=== PATIENT | male | born 1945 | race Caucasian/White ===

== ENCOUNTER 2021-06-25 16:46 | Inpatient (IN) | payer MEDICARE ==
[~2021-06-25] VITALS: Ht 175.3 cm; Wt 82.6 kg
[2021-06-25 17:41] LABS: BASOPHIL 0.7 % (0-2); EOSINOPHIL 4.9 % (0-7); HCT 42.9 % (42.0-52.0); HGB 14.5 g/dl (13.2-18.0); LYMPHOCYTE 18.2 % (15-48); MCHC 33.8 g/dL (32.0-36.0); MCV 91.7 fL (78.0-100.0); MONOCYTE 6.6 % (0-12); MPV 9.7 fL (6.0-9.5); NEUTROPHIL 69.2 % (41-80); NRBC 0; PLT 203 K/uL (150-400); RBC 4.68 M/uL (4.70-6.00); RDW 12.9 % (11.5-14.0); WBC 7.1 K/uL (4.0-10.5)
[2021-06-25 17:47] LABS: INR 0.99 (0.9-1.2); PROTHROMBIN TIME 12.5 SECONDS (11.8-13.4); PTT 24.7 SECONDS (24.4-34.7)
[2021-06-25 18:12] LABS: ALBUMIN 3.9 g/dL (3.4-5.0); BILIRUBIN - TOTAL 0.4 mg/dL (0.2-1.0); BUN/CREAT RATIO (CALC) 18.2 RATIO; CREATININE 1.43 mg/dL (0.67-1.17); GLOBULIN (CALCULATION) 3.3 g/dL; POTASSIUM 4.1 mmol/L (3.5-5.1); TOTAL PROTEIN 7.2 g/dL (6.4-8.2)
[2021-06-25 19:02] LABS: CORONAVIRUS 2019 SARS-COV-2 NEGATIVE (NEGATIVE); INFLUENZA A NAA NEGATIVE (NEGATIVE)
[2021-06-25] MEDS ORDERED: VICODIN 10/3251 EACH PO (22:57)
[2021-06-25] MEDS ORDERED: NORVASC5 MG PO (23:00)
[2021-06-25] MEDS ORDERED: CRESTOR5 M1 PO (23:01)
[2021-06-25] MEDS ORDERED: CYCLOBENZAPRINE10 MG PO (23:03)
[2021-06-25] MEDS ORDERED: FISH OIL 1,2001 EACH PO (23:04)
[2021-06-25] MEDS ORDERED: ADULT ASPIRIN R81 MG PO (23:04)
[2021-06-25] MEDS ORDERED: ASCORBIC ACID500 MG PO (23:05)
[2021-06-25] MEDS ORDERED: COQ-10100 MG PO (23:05)
[2021-06-25] MEDS ORDERED: NIACIN50 MG PO (23:06)
[2021-06-25] MEDS ORDERED: VITAMIN B-650 MG PO (23:07)
[2021-06-25] MEDS ORDERED: VITAMIN B-121000 MC1 PO (23:07)
[2021-06-25] MEDS ORDERED: POTASSIUM99 M1 PO (23:09)
[2021-06-25] MEDS ORDERED: D3 DOTS50 MCG PO (23:10)
[2021-06-26 05:56] LABS: BASOPHIL 0.6 % (0-2); HCT 37.4 % (42.0-52.0); HGB 12.3 g/dl (13.2-18.0); LYMPHOCYTE 22.4 % (15-48); MCH 30.5 pg (25.0-31.0); MCHC 32.9 g/dL (32.0-36.0); MCV 92.8 fL (78.0-100.0); MONOCYTE 7.5 % (0-12); MPV 9.6 fL (6.0-9.5); NEUTROPHIL 60.3 % (41-80); NRBC 0; PLT 166 K/uL (150-400); RBC 4.03 M/uL (4.70-6.00); WBC 4.9 K/uL (4.0-10.5)
[2021-06-26 06:26] LABS: ALBUMIN 3.1 g/dL (3.4-5.0); BILIRUBIN - TOTAL 0.4 mg/dL (0.2-1.0); GLOBULIN (CALCULATION) 2.7 g/dL; PHOSPHORUS 4.2 mg/dL (2.6-4.7); POTASSIUM 4.1 mmol/L (3.5-5.1); TOTAL PROTEIN 5.8 g/dL (6.4-8.2)
[2021-06-26 06:37] LABS: CKMB 1.2 ng/mL (0.0-3.6)
[2021-06-27 06:08] LABS: BASOPHIL 0.4 % (0-2); EOSINOPHIL 7.5 % (0-7); HCT 41.1 % (42.0-52.0); HGB 13.6 g/dl (13.2-18.0); LYMPHOCYTE 25.4 % (15-48); MCH 30.8 pg (25.0-31.0); MCHC 33.1 g/dL (32.0-36.0); MCV 93.2 fL (78.0-100.0); MONOCYTE 6.4 % (0-12); MPV 9.5 fL (6.0-9.5); NEUTROPHIL 60.1 % (41-80); NRBC 0; PLT 175 K/uL (150-400); RBC 4.41 M/uL (4.70-6.00); RDW 13.1 % (11.5-14.0); WBC 4.8 K/uL (4.0-10.5)
[2021-06-27 06:27] LABS: BUN/CREAT RATIO (CALC) 13.7 RATIO; CREATININE 1.02 mg/dL (0.67-1.17); MAGNESIUM 2.3 mg/dL (1.8-2.4); POTASSIUM 4.9 mmol/L (3.5-5.1)
[2021-06-28] MEDS ORDERED: ELIQUIS5 MG PO (11:04)
[2021-06-28] MEDS ORDERED: CARDIZEM30 MG PO (11:04)
== END 2021-06-28 11:44 | disposition home or self-care (01) | DRG 310 ==
LOC: FER 16:46 → FTCU 20:49
PROVIDERS: Internal Medicine; Nurse Practitioner; Nurse Practitioner Family; ADMIT Internal Medicine
DX: I48.91 Unspecified atrial fibrillation (principal); Z20.822 Contact with and (suspected) exposure to COVID-19; I10 Essential (primary) hypertension; I25.10 Atherosclerotic heart disease of native coronary artery without angina pectoris; E78.5 Hyperlipidemia, unspecified; J45.909 Unspecified asthma, uncomplicated; E78.00 Pure hypercholesterolemia, unspecified; D53.9 Nutritional anemia, unspecified; E55.9 Vitamin D deficiency, unspecified; Z96.653 Presence of artificial knee joint, bilateral; Z95.5 Presence of coronary angioplasty implant and graft; Z79.82 Long term (current) use of aspirin; Z79.899 Other long term (current) drug therapy; Z85.820 Personal history of malignant melanoma of skin; Z87.891 Personal history of nicotine dependence
CPT/HCPCS: 36415; 71045; 80048; 80053; 80061; 82553; 83036; 83690; 83735; 83880; 84100; 84145; 84439; 84443; 84484; 85025; 85379; 85610; 85730; 93005; 94010; 94762; C9113; J1160; J1650; J7030; U0002

== ENCOUNTER 2021-10-09 01:14 | Day surgery (SDCO) | payer MEDICARE ==
[~2021-10-09] VITALS: Ht 175.3 cm; Wt 84.4 kg
[~2021-10-09 01:14] MED LIST: ADULT ASPIRIN R81 MG PO; ASCORBIC ACID500 MG PO; CARDIZEM30 MG PO; COQ-10100 MG PO; CRESTOR5 M1 PO; CYCLOBENZAPRINE10 MG PO; D3 DOTS50 MCG PO; ELIQUIS5 MG PO; FISH OIL 1,2001 EACH PO; NIACIN50 MG PO; NORVASC5 MG PO; POTASSIUM99 M1 PO; VICODIN 10/3251 EACH PO; VITAMIN B-121000 MC1 PO; VITAMIN B-650 MG PO
[2021-10-09 01:51] LABS: BASOPHIL 0.8 % (0-2); EOSINOPHIL 8.4 % (0-7); HCT 38.1 % (42.0-52.0); HGB 12.9 g/dl (13.2-18.0); MCH 31.2 pg (25.0-31.0); MCHC 33.9 g/dL (32.0-36.0); MONOCYTE 9.1 % (0-12); MPV 10.1 fL (6.0-9.5); NEUTROPHIL 60.2 % (41-80); NRBC 0; PLT 184 K/uL (150-400); RBC 4.14 M/uL (4.70-6.00); RDW 12.5 % (11.5-14.0); WBC 5.9 K/uL (4.0-10.5)
[2021-10-09 02:11] LABS: ALBUMIN 3.4 g/dL (3.4-5.0); BILIRUBIN - TOTAL 0.7 mg/dL (0.2-1.0); BUN/CREAT RATIO (CALC) 15.1 RATIO; CREATININE 1.19 mg/dL (0.67-1.17); GLOBULIN (CALCULATION) 3.1 g/dL; TOTAL PROTEIN 6.5 g/dL (6.4-8.2)
[2021-10-09] MEDS ORDERED: AMIODARONE HCL200 MG PO (06:52)
[2021-10-09] MEDS ORDERED: ASPIRIN EC81 MG PO (06:54)
[2021-10-09] MEDS ORDERED: ASCORBIC ACID500 MG PO (06:54)
[2021-10-09] MEDS ORDERED: HYDROCODON-ACE1 EAC6 PO (06:54)
[2021-10-09] MEDS ORDERED: ELIQUIS5 MG PO (06:54)
[2021-10-09] MEDS ORDERED: ALL DAY ALLERGY10 M2 PO (06:55)
[2021-10-09] MEDS ORDERED: VITAMIN B-121000 MC1 SL (06:56)
[2021-10-09] MEDS ORDERED: VITAMIN D3125 MCG PO (06:56)
[2021-10-09] MEDS ORDERED: CARDIZEM30 MG PO (06:57)
[2021-10-09] MEDS ORDERED: DICLOFENAC SODI75 MG PO (06:57)
[2021-10-09] MEDS ORDERED: LOVAZA1 GM PO (06:58)
[2021-10-09] MEDS ORDERED: NIACIN 500 MG500 MG PO (06:58)
[2021-10-09] MEDS ORDERED: POTASSIUM99 M1 PO (07:04)
[2021-10-09] MEDS ORDERED: VITAMIN B-650 MG PO (07:04)
[2021-10-09] MEDS ORDERED: TADALAFIL20 M1 PO (07:05)
[2021-10-09] MEDS ORDERED: COENZYME Q-1030 MG PO (07:05)
[2021-10-09 07:46] LABS: MAGNESIUM 2.2 mg/dL (1.8-2.4); PHOSPHORUS 4.3 mg/dL (2.6-4.7)
[2021-10-09 10:06] LABS: CREATININE 1.12 mg/dL (0.67-1.17); POTASSIUM 4.1 mmol/L (3.5-5.1)
--- NOTE | 2021-10-09 13:25 | NUR ---
10/09/21 Mr. Marc shares a home with his S.O. He is independent in the home and community. He is able to meet his financial obligation. Dr. Herrera is the PCP. - No discharge planning needs are anticipated.
[2021-10-10 07:17] LABS: BASOPHIL 0.8 % (0-2); EOSINOPHIL 8.8 % (0-7); HCT 37.7 % (42.0-52.0); HGB 12.6 g/dl (13.2-18.0); LYMPHOCYTE 15.2 % (15-48); MCH 31.4 pg (25.0-31.0); MCHC 33.4 g/dL (32.0-36.0); MPV 9.9 fL (6.0-9.5); NEUTROPHIL 66.7 % (41-80); PLT 178 K/uL (150-400); RBC 4.01 M/uL (4.70-6.00); RDW 12.6 % (11.5-14.0); WBC 7.6 K/uL (4.0-10.5)
[2021-10-10 07:56] LABS: BUN 20 mg/dL (7-18); BUN/CREAT RATIO (CALC) 16.9 RATIO; CHLORIDE 105 mmol/L (98-107); CO2 (BICARBONATE) 30 mmol/L (21-32); CREATININE 1.18 mg/dL (0.67-1.17); GLUCOSE 105 mg/dL (74-106); MAGNESIUM 2.1 mg/dL (1.8-2.4); POTASSIUM 4.4 mmol/L (3.5-5.1)
[2021-10-10 07:57] LABS: C-REACTIVE PROTEIN < 0.20 mg/dL (<=0.90)
[2021-10-10 08:00] LABS: EOSINOPHIL(M) 2 % (0-7); LYMPHOCYTE(M) 19 % (15-48); MONOCYTE(M) 4 % (0-12); NEUTROPHILS(M) 75 % (41-80); PLATELET ESTIMATE NORMAL; PLATELET MORPHOLOGY NORMAL; TOTAL CELL COUNT 100
--- NOTE | 2021-10-10 10:26 | NUR ---
mONITOR REMOVED. iv REMOVED. rEVIEWED DISCHARGE INSTRUCTIONS. pATIENT VERBALIZES UNDERSTANDING. PULSE OX GIVEN TO MONITOR HEART RATE. PATIENT DISCHARGED HOME WITH GIRLFRIEND.
== END 2021-10-10 10:15 | disposition home or self-care (01) ==
LOC: FER 01:14 → FTCU 05:38
PROVIDERS: Emergency Medicine; Nurse Practitioner; Nurse Practitioner Family; ADMIT Internal Medicine
DX: I48.91 Unspecified atrial fibrillation (principal); R77.8 Other specified abnormalities of plasma proteins; I25.10 Atherosclerotic heart disease of native coronary artery without angina pectoris; I10 Essential (primary) hypertension; E78.5 Hyperlipidemia, unspecified; F41.1 Generalized anxiety disorder; M19.90 Unspecified osteoarthritis, unspecified site; J45.909 Unspecified asthma, uncomplicated; Z98.890 Other specified postprocedural states; Z98.61 Coronary angioplasty status; Z79.01 Long term (current) use of anticoagulants; Z79.82 Long term (current) use of aspirin; Z88.5 Allergy status to narcotic agent; Z88.8 Allergy status to other drugs, medicaments and biological substances; Z87.891 Personal history of nicotine dependence
CPT/HCPCS: 36415; 71045; 80048; 80053; 80061; 83735; 83880; 84100; 84439; 84443; 84484; 85025; 86140; 93005; 94010; 94762; G0378; J0282; J7060